=== PATIENT | male | born 1945 | race Caucasian/White ===

== ENCOUNTER 2022-01-28 07:21 | Emergency (ER) | payer MEDICARE ==
[~2022-01-28] VITALS: Ht 185.4 cm; Wt 82.5 kg
[2022-01-28] MEDS ORDERED: AMLODIPINE BES2.5 MG PO (07:42)
[2022-01-28] MEDS ORDERED: OMEPRAZOLE20 MG PO (07:43)
[2022-01-28] MEDS ORDERED: HYDROCHLOROTH12.5 M1 PO (07:43)
--- NOTE | 2022-01-28 20:23 | EKG ---
[facility] [address] [facility] [place], [place] [address] Signed Normal sinus rhythm Left axis deviation Left bundle branch block Abnormal ECG No previous ECGs available Confirmed by SHIRA WEEKS MD ([id number] on 01/28/2022 8:23:21 PM Electronically Signed By: SHIRA WEEKS MD 01/28/222022 PATIENT NAME: TOSHIA MIRANDA CINDY Electrocardiogram DATE OF : 43 PHYSICIAN: SHIRA WEEKS MD REPORT #: [id number] REPORT IS CONFIDENTIAL AND NOT TO BE RELEASED WITHOUT AUTHORIZATION
== END 2022-01-28 10:30 | disposition left against medical advice (07) ==
LOC: ED 07:21
DX: R91.8 Other nonspecific abnormal finding of lung field (principal); I45.4 Nonspecific intraventricular block; Z53.29 Procedure and treatment not carried out because of patient's decision for other reasons; Z93.0 Tracheostomy status
CPT/HCPCS: 36415; 71045; 71260; 80053; 81001; 84484; 85025; 93005; 93010; J7040; Q9967